=== PATIENT | female | born 1995 | race Caucasian/White ===

== ENCOUNTER 2021-11-09 01:29 | Outpatient (CLI) | payer MEDICAID, SELFPAY ==
[2021-11-09 14:58] LABS: Abs Immature Grans 0.02 10^3/uL (0.0-0.06); Absolute Basophil Count 0.06 10^3/uL (0.0-0.2); Absolute Eosinophil Count 0.13 10^3/uL (0.0-0.7); Absolute Lymphocyte Count 2.25 10^3/uL (1.2-3.4); Absolute Monocyte Count 0.79 10^3/uL (0.1-0.8); Basophils % 0.6; Eosinophils % 1.2; HCT 41.9 % (36.0-46.0); HGB 13.9 g/dL (11.2-15.7); Immature Grans % 0.2; Lymphocytes % 20.8; MCH 29.6 pg (27.0-33.0); MCHC 33.2 % (32.0-36.0); MCV 89.1 fL (80-95); MPV 10.6 fL (8.0-11.0); Monocytes % 7.3; Neutrophils % 69.9; Nucleated RBC 0 %; Platelet Count 261 10^3/uL (130-400); RDW 12.2 % (11.7-14.6); RDW-SD 40.5 fL; WBC 10.82 10^3/uL (4.4-10.8)
[2021-11-09 15:05] LABS: Absolute Neutrophil Count 7.56 10^3/uL (1.2-6.7)
[2021-11-09 15:29] LABS: *AMPHETAMINES SCREEN URINE Negative (Negative); *BARBITURATES SCREEN URINE Negative (Negative); *BENZODIAZEPINES SCREEN URINE Negative (Negative); Cannabinoids THC Positive (Negative); Cocaine Screen,Urine Negative (Negative); METHADONE URINE SCREEN Negative (Negative); OPIATES URINE SCREEN Negative (Negative); Tricyclic Antidepressants Negative (Negative)
[2021-11-12 10:08] LABS: HIV-1/2 Ag & Ab Screen Negative (Negative)
[2021-11-13 09:42] LABS: Hepatitis B Surface Ag Negative (Negative)
[2021-11-13 10:18] LABS: Hepatitis C Ab w Rflx HCV PCR Negative (Negative)
[2021-11-13 11:26] LABS: Varicella IgG Antibody Positive (See Note)
[2021-11-13 11:28] LABS: Rubella IgG Ab (UVM) Positive (See Note)
[2021-11-13 12:50] LABS: Syphilis IgG w/Reflex Nonreactive (Nonreactive)
[2021-11-15 10:45] LABS: Buprenorphine Negative ng/mL (Cutoff: 5.0); Norbuprenorphine Negative ng/mL (Cutoff: 2.5)
[2021-11-18 02:24] LABS: Result Summary NEGATIVE; Specimen WB Whole Blood
== END 2021-11-09 01:30 | disposition home or self-care (01) ==
LOC: LBO 01:30
PROVIDERS: Visit Provider Advanced Practice Midwife
DX: Z34.91 Encounter for supervision of normal pregnancy, unspecified, first trimester
CPT/HCPCS: 36415; 80307; 86787; 86803; 86850; 86900; 86901; 87340; 87389; 81220; 84443; 85025; 86762; 86780; 87086

== ENCOUNTER 2021-11-09 14:46 | Outpatient (REF) | payer MEDICAID, SELFPAY ==
--- NOTE | 2021-11-09 14:00 | PAPFT_PTH ---
PATIENT: Geovanny Hayes LOC: [facility] U#:[id number] AGE/SX: 26/F ROOM: RE11/09/[address]: Moira Mendiola CNM : 1995 BED: DIS: 11/09/2021 SPEC #: [id number] RECD: 11/09/21 18:25 STATUS: ROMMEL REQ #: [id number] SB: 11/09/21 14:[address]: Moira Mendiola DEPT: [facility] Cytology RECD BY: Darlene Castañeda ENTERED: 11/09/21 18:25 SP TYPE: PAPFT OTHR DR: Unknown,Unknown Tissues: 1 - CX/ENDOCX FOR PAP SMEARS Procedures: PAP THIN PREP/UVM Screening Comments: [id number]
[2021-11-13 15:34] LABS: Chlamydia Result Negative (Negative); GC Result Negative (Negative)
== END 2021-11-09 14:47 | disposition home or self-care (01) ==
LOC: LBN 14:46
PROVIDERS: Visit Provider Advanced Practice Midwife
DX: Z34.91 Encounter for supervision of normal pregnancy, unspecified, first trimester; Z12.4 Encounter for screening for malignant neoplasm of cervix; Z11.3 Encounter for screening for infections with a predominantly sexual mode of transmission
CPT/HCPCS: 87491; 87591; 88142

== ENCOUNTER 2021-11-24 04:14 | Outpatient (CLI) | payer MEDICAID, SELFPAY ==
[2021-11-24 09:10] LABS: Kit/Specimen SENT
== END 2021-11-24 04:15 | disposition home or self-care (01) ==
LOC: LBO 04:15
PROVIDERS: Visit Provider Advanced Practice Midwife
DX: Z34.01 Encounter for supervision of normal first pregnancy, first trimester (principal); Z36.89 Encounter for other specified antenatal screening
CPT/HCPCS: 36415

== ENCOUNTER 2021-12-08 16:29 | Emergency (ER) | payer MEDICAID, SELFPAY ==
[2021-12-08 16:31] VITALS: BP 117/69; PULSE 87; RESP 16; TEMP 37.1; O2SAT 100
--- NOTE | 2021-12-08 16:45 | DI.US_ITS ---
Exam(s) US OB 2-3 TRIMESTER EXAM: US OB 2-3 TRIMESTER CLINICAL HISTORY: LLQ abd Pain, R/O Abruptio. TECHNIQUE: Transabdominal obstetrical ultrasound performed. COMPARISON: No exams were available for comparison FINDINGS: Transabdominal obstetrical ultrasound performed. FINDINGS: Number of fetuses: One. position: Variable Placental grade: 0 Placental location: Anterior. No evidence of previa. Cervix: Unremarkable Right ovary: Not visualized. Left ovary: Unremarkable. No evidence of cyst, mass or torsion. BIOMETRIC DATA: Composite Age: 14 weeks 3 days EDC by US: 05 June 2022 Heart Rate: 171BPM No gross abnormalities. Amniotic fluid: Amount of fluid is visually within normal limits. IMPRESSION: 1. Single live intrauterine gestation 14 weeks 3 days. 2. Normal appearing left ovary. Right ovary not visualized. 3. No evidence of placental abruption or previa. DATA REPOSITORY:
--- NOTE | 2021-12-08 16:46 | ED.GENADUL_ITS ---
Discharge Plan Disposition Patient Disposition: HOME Condition: Improving Discharge Details Clinical Impression: Pain of round ligament Primary Care Provider: Aye,Local ED Provider: Gisele Jean Baptiste Home Meds and New Rx's Prescriptions: Continued Gummies 400 mcg-35 mg- 25 mg-5 mg tablet,chewable 1 tab PO DAILY 0RF aspirin 81 mg tablet,delayed release (DR/EC) 81 mg PO DAILY Qty: 60 4RF Rx Instructions: 1 tab daily, 2 tabs every other day Discharge Instructions Additional Instructions: At this time the ultrasound is within normal limits. I do suspect something called round ligament pain or a muscle strain. Your potassium was slightly low today. Please increase intake of foods high in potassium such as bananas. Continue to take your vitamins. Please follow-up with your EPIC ANESTHESIA ANALYST as previously scheduled for any concerns. Follow up with primary care provider in 3-5 days if needed . Return to ED sooner if any worsening abdominal pain, vaginal bleeding, dizziness or lightheadedness, or concerns. Increase oral fluids. Please take Tylenol or Ibuprofen with food every 4-6 hours as needed for pain and swelling. Referrals: Cherrie Palacio CNM [[facility] NURSE [employer] [employer]] - Return if symptoms worsen Discharge Data Discharge Date/Time-TO BE ENTERED AT DEPARTURE: 12/08/21 18:48 Medical Decision Making 26-year-old female presents to the ER with chief complaint of acute onset of left lower quadrant abdominal pain which occurred approximately 30 to 45 minutes prior to arrival. Patient states that she had a massage around 2 PM when she was walking out to her car and began with some left lower quadrant abdominal pain. She reports it is worse when she moves her leg or any sort of movement. She is tearful upon arrival. She did not take any medications prior to arrival. She is approximately 13 weeks prima . She denies any vaginal bleeding no nausea vomiting diarrhea no chest pain shortness of breath fever or chills. She did see her EPIC ANESTHESIA ANALYST for visit this morning. CBC, CMP, urinalysis and pelvic ultrasound ordered. Urinalysis and Tylenol ordered and 10 mg of Flexeril. Did confirm that Flexeril is a category B for . Differential diagnosis includes but not limited to muscle strain, (Round ligament strain), UTI, Kidney stone, Ovarian cyst, Gastroenteritis, threatened miscarriage, and less likely due to no c/o vaginal bleeding placenta abruptio, Ultrasound is available at this time. A second trimester ultrasound ordered. CBC shows no leukocytosis hemoglobin hematocrit within normal limits, sodium is slightly low at 134, potassium 3.3 urinalysis shows negative leukocytes no nitrites. No evidence for UTI. Verbal result from technical documentation specialist as negative. Baby's heart rate was 170s. Will await for the official result. 1753: Patient reevaluation she appears much more comfortable. She reports feeling much better after the Tylenol and Flexeril. I did discuss my suspicion for round ligament pain. And I did discuss home care. We will give a liter of normal saline and 20 mEq of potassium at this time. VRAD US: Imaging protocol: Real-time transabdominal obstetrical ultrasound of the maternal pelvis and a second or third trimester with image documentation. COMPARISON: No relevant prior studies available. FINDINGS: GESTATION: Gestation: Live intrauterine gestation. heart rate: heart rate is 171 bpm lie: Live intrauterine gestation in variable lie. Placenta: Predominantly anterior placenta. Relationship to the cervix not specifically documented Amniotic fluid: Amniotic fluid is subjectively normal BIOMETRY: Gestational age (AUA): EGA based on today's measurements is 14 weeks 3 days. Estimated due date (AUA): CAMACHO based on today's measurements is June 05, 2022. Biometry is symmetric MATERNAL: Uterus: Unremarkable. Cervix: Cervix is grossly closed on transabdominal imaging Right adnexa: The right ovary was not seen, possibly due to bowel gas. Left adnexa: Normal left ovary. IMPRESSION: 1. Live intrauterine gestation in variable lie. 2. EGA based on today's measurements is 14 weeks 3 days. 3. CAMACHO based on today's measurements is June 05, 2022. Patient discharged in hemodynamically stable condition. Patient feels much improved after medications. Discussed follow-up care and strict return instructions. This text was generated using [employer] system, please disregard any oddities of phrase or misspellings. HPI General Mode of arrival: ambulatory . Date/Time Provider Initiated Documentation: 12/08/21 16:30 . Limitations to Documentation: no limitations . Information obtained by: patient, RN notes reviewed and old records reviewed . HPI Narrative: 26-year-old female presents to the ER with chief complaint of acute onset of lef t lower quadrant abdominal pain which occurred approximately 30 to 45 minutes prior to arrival. Patient states that she had a massage around 2 PM when she was walking out to her car and began with some left lower quadrant abdominal pain. She reports it is worse when she moves her leg or any sort of movement. She is tearful upon arrival. She did not take any medications prior to arrival. She is approximately 13 weeks prima . She denies any vaginal bleeding no nausea vomiting diarrhea no chest pain shortness of breath fever or chills. She did see her EPIC ANESTHESIA ANALYST for visit this morning. Related Data Home Medications Medication Instructions Recorded Confirmed PNV 153-FA 400 mcg-om3 35 mg-dha 1 tab PO DAILY 10/20/21 12/08/21 25 mg-epa 5 mg-fish oil chew tablet ( Gummies) aspirin 81 mg tablet,delayed 81 mg PO DAILY #60 tab 11/09/21 12/08/21 release Previous Rx's Medication Instructions Recorded aspirin 81 mg tablet,delayed 81 mg PO DAILY #60 tab 11/09/21 release Allergies Allergy/AdvReac Type Severity Reaction Status Date / Time tramadol Allergy Verified 12/08/21 16:36 morphine AdvReac Itching Verified 12/08/21 16:36 General Stated Complaint: EPIC ANESTHESIA ANALYST NAI: 3 Review of Systems All systems reviewed & are unremarkable except as noted in HPI and below Constitutional Constitutional: Denies fever(s) Cardiovascular Cardiovascular: Denies chest pain and Denies dyspnea Respiratory Respiratory: Denies dyspnea Gastrointestinal Gastrointestinal: Reports abdominal pain, Denies diarrhea, Denies nausea and Denies vomiting Genitourinary Genitourinary: Reports as per HPI, Denies abnormal vaginal bleeding and Reports dysuria Musculoskeletal Musculoskeletal: Reports as per HPI and Reports abnormal gait (LLq ABD PAIN WORSE WITH WALKING AND MOVEMENT) Neurologic Neurologic: Reports abnormal gait (LLq ABD PAIN WORSE WITH WALKING AND MOVEMENT) PFSH All Active Problems (Updated 12/08/21 @ 17:58 by Gisele Jean Baptiste) Pain of round ligament (Acute) Anxiety (Chronic) Marijuana abuse (Acute) (Acute) Medical History Asthma Migraine Personal history of endometriosis Dx'ed with HSG procedure Surgical History History of mandibular surgery History of removal of ovarian cyst Family History Mother Bipolar 1 disorder, mixed, moderate Depression Breast cancer Alcohol use disorder Father Cancer lymphoma Alcohol use disorder Sister Hypertension gestational hypertension Social History Smoking/Tobacco Use Status: Never Smoking risk assessment performed?: Yes Alcohol Intake: never Drug use: Daily Substance use type: marijuana Counseling given: Yes Counseling provided: provider counseling Adopted: No Foster care: No (mostly raised by her father) Pets and animals: Yes Pets and animals: dog(s) Sexually active: Yes Do you think of yourself as: straight/heterosexual Current gender identity: female Do you feel safe at home: Yes Do you feel safe in your relationship?: Yes History History 1 Para 0 Hx # Term Pregnancies 0 Multiple births 0 Hx # Pregnancies 0 Ectopic pregnancies 0 AB induced 0 Hx Number of Living Children 0 AB spontaneous 0 Exam Narrative Exam Narrative: Constitutional: Alert and oriented x3. Appears stated age. Normal body habitus. Head: Normocephalic, no trauma. Eyes: Pupils PERRL, Red reflex noted, EOM's intact. Eyelids symmetrical without lesions, discharge, or swelling. ENT: Bilateral TM's WNL, External ear normal to inspection, no mastoid TTP, swelling, or erythema, Nasal turbinates WNL, no nasal discharge. Normal dentition, Posterior pharynx WNL, no exudate. Chest: RRR, Normal S1, S2, distal pulses intact. Resp: Lungs clear to auscultation bilaterally, no wheezes, rales, or rhonchi. Abdomen: Soft, non-distended, Normoactive bowel sounds all 4 quads. Abdomen consistent with 13-week gravidarum tenderness noted to the left lower quadrant. No masses or bulging palpated. No CVA tenderness bilaterally. Musculoskeletal: , 5/5 strength to all four extremities. Skin: No suspicious rashes or lesions. Capillary refill less than 2 sec. Neurologic: Cranial nerves II-XII intact. Alert and oriented x 3. Motor: No deficits noted. Sensory: Intact bilaterally all 4 extremities. Reflexes: DTR's intact bilaterally.. Hematologic/Lymphatic: No ecchymosis, no lymphadenopathy. Course Vital Signs Vital signs: Vital Signs Temperature 37.1 C 12/08/21 16:31 Pulse 87 12/08/21 16:31 Respiratory Rate 16 12/08/21 16:31 Blood Pressure 117/69 12/08/21 16:31 Pulse Oximetry 100 12/08/21 16:31 Temperature 37.1 C 12/08/21 16:31 Temperature Source Skin 12/08/21 16:31 Pulse 87 12/08/21 16:31 Respiratory Rate 16 12/08/21 16:31 Respiratory Effort 12/08/21 16:37 Blood Pressure 117/69 12/08/21 16:31 Blood Pressure Position Sitting 12/08/21 16:31 Pulse Oximetry 100 12/08/21 16:31 Oxygen Delivery Method Room Air 12/08/21 16:31 Oxygen Flow Rate 0 12/08/21 16:31 Pain Level 10 12/08/21 16:31
[2021-12-08] MEDS: Cyclobenzaprine 10 MG TAB PO (17:02)
[2021-12-08] MEDS: Acetaminophen 325 MG TAB 650 MG PO (17:02)
[2021-12-08 17:10] LABS: Abs Immature Grans 0.03 10^3/uL (0.0-0.06); Absolute Basophil Count 0.03 10^3/uL (0.0-0.2); Absolute Eosinophil Count 0.17 10^3/uL (0.0-0.7); Absolute Lymphocyte Count 2.06 10^3/uL (1.2-3.4); Absolute Monocyte Count 0.78 10^3/uL (0.1-0.8); Absolute Neutrophil Count 7.31 10^3/uL (1.2-6.7); Basophils % 0.3; Eosinophils % 1.6; HCT 39.4 % (36.0-46.0); HGB 13.3 g/dL (11.2-15.7); Immature Grans % 0.3; Lymphocytes % 19.8; MCH 29.2 pg (27.0-33.0); MCHC 33.8 % (32.0-36.0); MCV 86.4 fL (80-95); MPV 10.9 fL (8.0-11.0); Monocytes % 7.5; Neutrophils % 70.5; Nucleated RBC 0 %; Platelet Count 240 10^3/uL (130-400); RBC 4.56 10^6/uL (3.93-5.22); RDW 12.1 % (11.7-14.6); RDW-SD 38.5 fL; WBC 10.38 10^3/uL (4.4-10.8)
[2021-12-08 17:26] LABS: ALT 21 U/L (14-59); AST 12 U/L (15-37); Albumin 3.5 g/dL (3.4-5.0); Alkaline Phosphatase 65 U/L (46-116); Anion Gap 8.9 mmol/L (3-11); BUN 9 mg/dL (7-18); Bilirubin, Total 0.4 mg/dL (0.2-1.0); CO2 24.1 mmol/L (21.0-32.0); CREATININE 0.7 mg/dL (0.55-1.02); Calcium 8.7 mg/dL (8.5-10.1); Chloride 101 mmol/L (98-107); Glucose 91 mg/dL (74-106); Potassium 3.3 mmol/L (3.5-5.1); Sodium 134 mmol/L (136-145); Total Protein 7.2 g/dL (6.4-8.2)
[2021-12-08 17:29] LABS: Bilirubin Negative (Negative); Blood Negative (Negative); Clarity Sl Cloudy (Clear); Glucose Negative (Negative); Ketones Negative (Negative); Leukocyte Esterase Negative (Negative); Nitrite Negative (Negative); Urobilinogen 0.2 EU/dL (Up TO 0.2)
[2021-12-08] MEDS: Potassium Chloride 20 MEQ TABCR PO (17:53)
[2021-12-08] MEDS: Normal Saline 1,000 ML 1000 ML IV (17:53)
--- NOTE | 2021-12-08 18:19 | DI.VRAD_ITS ---
PROCEDURE INFORMATION: Exam: US Duplex Artery or Vein of the Abdominal and/or Reproductive Organs, Limited Exam date and time: 12/08/2021 17:21 Age: 26 years old Clinical indication: Gestational age or lmp: Edc = 06/13/2022; ; Patient HX: Llq pain starting today. No bleeding. TECHNIQUE: Imaging protocol: Real-time duplex ultrasound scan of the arterial or venous flow of the abdomen and/or reproductive organs, with color Doppler flow and spectral waveform analysis with image documentation. Exam focused on the region of clinical interest. Duplex images were received to evaluate vascular conditions. COMPARISON: No relevant prior studies available. FINDINGS: Normal arterial and venous waveforms in the left ovary. The right ovary was not seen, possibly due to bowel gas. IMPRESSION: No left ovarian torsion. PROCEDURE INFORMATION: Exam: US After First Trimester, Transabdominal Exam date and time: 12/08/2021 17:21 Age: 26 years old Clinical indication: Gestational age or lmp: Edc = 06/13/2022; ; Patient HX: Llq pain starting today. No bleeding. TECHNIQUE: Imaging protocol: Real-time transabdominal obstetrical ultrasound of the maternal pelvis and a second or third trimester with image documentation. COMPARISON: No relevant prior studies available. FINDINGS: GESTATION: Gestation: Live intrauterine gestation. heart rate: heart rate is 171 bpm lie: Live intrauterine gestation in variable lie. Placenta: Predominantly anterior placenta. Relationship to the cervix not specifically documented Amniotic fluid: Amniotic fluid is subjectively normal BIOMETRY: Gestational age (AUA): EGA based on today's measurements is 14 weeks 3 days. Estimated due date (AUA): CAMACHO based on today's measurements is June 05, 2022. Biometry is symmetric MATERNAL: Uterus: Unremarkable. Cervix: Cervix is grossly closed on transabdominal imaging Right adnexa: The right ovary was not seen, possibly due to bowel gas. Left adnexa: Normal left ovary. IMPRESSION: 1. Live intrauterine gestation in variable lie. 2. EGA based on today's measurements is 14 weeks 3 days. 3. CAMACHO based on today's measurements is June 05, 2022. Dictated and Authenticated by: Kayy Yeager MD. Ordering:JOB Jaquez MD
[2021-12-08] MEDS: Cyclobenzaprine 10 MG TAB, 3 TABS/BTL PO (18:36)
[2021-12-08 18:44] VITALS: BP 113/56; PULSE 95; RESP 17; TEMP 36.6; O2SAT 100
== END 2021-12-08 18:48 | disposition home or self-care (01) ==
LOC: ER 18:51
PROVIDERS: Emergency Provider Registered Nurse Emergency
DX: O26.891 Other specified pregnancy related conditions, first trimester (principal); Z3A.13 13 weeks gestation of pregnancy; R10.2 Pelvic and perineal pain
CPT/HCPCS: 36415; 80053; 81025; 96360; 99284; 76805; 81003; 84702; 84703; 85025

== ENCOUNTER 2021-12-22 02:30 | Outpatient (CLI) | payer MEDICAID, SELFPAY ==
[2021-12-25 20:43] LABS: Calculated age at EDD 28 years; Cigarette smoking status non-Smoker; GA used in risk estimate Scan estimate; IVF Pregnancy No; Initial or repeat testing Initial testing; Insulin dependent diabetes No; Maternal Weight 135 lbs; Number of Fetuses 1; Physician Phone Number 802-748-7300; Prev Pregnancy w/NTD No; RECOMMENDED FOLLOW UP None.; Results Summary Normal risk
== END 2021-12-22 02:31 | disposition home or self-care (01) ==
LOC: LBO 02:30
PROVIDERS: Visit Provider Advanced Practice Midwife
DX: Z34.92 Encounter for supervision of normal pregnancy, unspecified, second trimester (principal); Z36.89 Encounter for other specified antenatal screening; Z3A.15 15 weeks gestation of pregnancy
CPT/HCPCS: 36415; 82105

== ENCOUNTER 2022-01-12 00:58 | Outpatient (CLI) | payer MEDICAID, SELFPAY ==
--- NOTE | 2022-01-12 07:00 | DI.US_ITS ---
Exam(s) US OB 2-3 TRIMESTER W MOD EXAM: US OB 2-3 TRIMESTER W MOD CLINICAL HISTORY: 18 wk anatomy survey,Z34.90. TECHNIQUE: Transabdominal obstetrical ultrasound performed. COMPARISON: US US OB 2-3 TRIMESTER from 12/08/2021 FINDINGS: Transabdominal obstetrical ultrasound performed. FINDINGS: Number of fetuses: One. position: Variable Placental grade: 1 Placental location: Anterior. Cervical os lower margin of the placenta not well seen BIOMETRIC DATA: BPD: Not well seen HC: Not well seen AC: 132 millimeters, 18+ 5 weeks FL: 26 millimeters, 18+ 0 weeks Cisterna Magna: 1.6 millimeters Cerebellum: 1.7 cm EFW: Composite Age: EDC by US: 12 June 2022 Heart Rate: Present but not measured Amniotic fluid: Of fluid is visually within normal limits. ANATOMICAL SURVEY: Four-chambered heart: Unremarkable. LVOT: Unremarkable. RVOT: Unremarkable. Left-sided stomach: Unremarkable. urinary bladder: Unremarkable. Bilateral kidneys: Unremarkable. Three-vessel cord: Unremarkable. Cord insertion: Unremarkable. Umbilical artery velocity: Unremarkable. Posterior fossa:Not well seen ventricles: Not well seen. nose: Unremarkable. lips: Unremarkable. palate: Unremarkable. spine: Unremarkable. Two arms and two legs: Unremarkable. IMPRESSION: 1. head, cervix and lower margin of the percent or not well seen on today's exam. Patient is s cheduled to return 19 Jan 2022 for additional imaging. DATA REPOSITORY:
== END 2022-01-12 01:18 ==
PROVIDERS: Visit Provider Advanced Practice Midwife
DX: Z34.92 Encounter for supervision of normal pregnancy, unspecified, second trimester (principal); Z3A.18 18 weeks gestation of pregnancy
CPT/HCPCS: 76805

== ENCOUNTER → 2022-01-22 00:33 | Outpatient (CLI) | payer MEDICAID, SELFPAY ==
--- NOTE | 2022-01-22 | DI.US_ITS ---
Exam(s) US OB F/U FACIAL/LVOT/RVOT EXAM: US OB F/U FACIAL/LVOT/RVOT CLINICAL HISTORY: F/U SURVEY, HEAD/CERVIX/LOWER MARGIN PLACENTA. TECHNIQUE: Transabdominal obstetrical ultrasound performed. COMPARISON: US US OB 2-3 TRIMESTER W MOD from 01/12/2022 FINDINGS: Transabdominal obstetrical ultrasound performed. FINDINGS: Number of fetuses: One. position: Vertex. heart rate: 157 bpm. Placental location: Anterior. No evidence of previa. Placental margin 3.3 cm from os. BIOMETRIC DATA: Composite Age: 20+ 4 weeks EDC: 07 June 2022 Amniotic fluid: Amount of fluid is within normal limits. ANATOMICAL SURVEY: heart, stomach, bladder, kidneys, face and spine were evaluated on today's exam. There is mild pelviectasis bilaterally of 4 millimeters. BPD and HC measurements w ere obtained. IMPRESSION: 1. Single live intrauterine gestation as above. 2. Mild bilateral symmetric renal pelviectasis, otherwise normal anatomic survey. DATA REPOSITORY:
== END ==
PROVIDERS: Visit Provider Advanced Practice Midwife
DX: Z34.92 Encounter for supervision of normal pregnancy, unspecified, second trimester (principal); Z3A.20 20 weeks gestation of pregnancy
CPT/HCPCS: 76815

== ENCOUNTER 2022-03-23 02:05 | Outpatient (CLI) | payer MEDICAID, SELFPAY ==
[2022-03-23 11:50] LABS: HCT 32.6 % (36.0-46.0); HGB 10.5 g/dL (11.2-15.7); MCH 27.9 pg (27.0-33.0); MCHC 32.2 % (32.0-36.0); MCV 87 fL (80-95); MPV 10.6 fL (8.0-11.0); Platelet Count 254 10^3/uL (130-400); RBC 3.76 10^6/uL (3.93-5.22); RDW-SD 38.1 fL; WBC 8.38 10^3/uL (4.4-10.8)
[2022-03-23 12:05] LABS: Glucose,1 Hr (Glucola) 92 mg/dL (80-140)
== END 2022-03-23 02:06 | disposition home or self-care (01) ==
LOC: LBO 02:05
PROVIDERS: Visit Provider Advanced Practice Midwife
DX: O36.0130 Maternal care for anti-D [Rh] antibodies, third trimester, not applicable or unspecified (principal); O26.893 Other specified pregnancy related conditions, third trimester; Z3A.28 28 weeks gestation of pregnancy
CPT/HCPCS: 36415; 82950; 85027; 86850; 90384

== ENCOUNTER 2022-03-23 15:35 | Outpatient (REF) | payer MEDICAID, SELFPAY ==
[2022-03-23 14:46] LABS: *AMPHETAMINES SCREEN URINE Negative (Negative); *BARBITURATES SCREEN URINE Negative (Negative); *BENZODIAZEPINES SCREEN URINE Negative (Negative); Cannabinoids THC Positive (Negative); Cocaine Screen,Urine Negative (Negative); METHADONE URINE SCREEN Negative (Negative); OPIATES URINE SCREEN Negative (Negative); Tricyclic Antidepressants Negative (Negative)
[2022-03-29 11:07] LABS: Buprenorphine Negative ng/mL (Cutoff: 5.0); Norbuprenorphine Negative ng/mL (Cutoff: 2.5)
== END 2022-03-23 15:36 | disposition home or self-care (01) ==
LOC: LBN 15:35
PROVIDERS: Visit Provider Advanced Practice Midwife
DX: Z34.93 Encounter for supervision of normal pregnancy, unspecified, third trimester (principal); Z3A.28 28 weeks gestation of pregnancy
CPT/HCPCS: 80307

== ENCOUNTER → 2022-05-09 01:51 | Outpatient (CLI) | payer MEDICAID, SELFPAY ==
--- NOTE | 2022-05-09 07:30 | DI.US_ITS ---
Exam(s) US OB F/U FACIAL/LVOT/RVOT EXAM: US OB F/U FACIAL/LVOT/RVOT CLINICAL HISTORY: kidney pyelectasis,o35.8xx0. TECHNIQUE: Transabdominal obstetrical ultrasound was performed. COMPARISON: US US OB F/U FACIAL/LVOT/RVOT from 01/22/2022 FINDINGS: There is a single viable intrauterine gestation with cardiac activity identified-138 bpm The fetus is presently in cephalic position . Three-vessel umbilical cord identified. Amniotic fluid: Not evaluated. Placental location: The placenta is anterior grade 3, This study was apparently follow-up of the renal kidneys. The SPECT of the kidneys, the PD/KD ratio is less than 50 percent bilaterally. There is no sathya e caliectasis. IMPRESSION:: As above. To be prudent I recommend ultrasound scanning of the kid neys. This should not be performed in the 1st 48 hours following . The reason for this is that dehydration may occur during delivery and result in false negative results. DATA REPOSITORY:
== END ==
PROVIDERS: Visit Provider Advanced Practice Midwife
DX: O35.8XX0 Maternal care for other (suspected) fetal abnormality and damage, not applicable or unspecified (principal)
CPT/HCPCS: 76815

== ENCOUNTER 2022-05-18 15:33 | Outpatient (REF) | payer MEDICAID, SELFPAY ==
[2022-05-18 18:05] LABS: *AMPHETAMINES SCREEN URINE Negative (Negative); *BARBITURATES SCREEN URINE Negative (Negative); *BENZODIAZEPINES SCREEN URINE Negative (Negative); Cannabinoids THC Positive (Negative); Cocaine Screen,Urine Negative (Negative); METHADONE URINE SCREEN Negative (Negative); OPIATES URINE SCREEN Negative (Negative)
[2022-05-18 18:11] LABS: Tricyclic Antidepressants Negative (Negative)
[2022-05-25 12:26] LABS: Buprenorphine Negative ng/mL (Cutoff: 5.0); Norbuprenorphine Negative ng/mL (Cutoff: 2.5)
== END 2022-05-18 15:34 | disposition home or self-care (01) ==
LOC: LBN 15:33
PROVIDERS: Visit Provider Advanced Practice Midwife
DX: Z34.93 Encounter for supervision of normal pregnancy, unspecified, third trimester (principal)
CPT/HCPCS: 80307; 87081

== ENCOUNTER 2022-06-07 01:36 | Inpatient (IN) | payer MEDICAID, SELFPAY ==
[2022-06-07] VITALS (47 sets, daily range): BP systolic 99–144; BP diastolic 51–93; PULSE 55–101; RESP 16–20; TEMP 36.6–37; O2SAT 92–100; BMI 28.7
--- NOTE | 2022-06-07 01:59 | W.PM.OBHPL1 ---
Date of service: 06/07/22 Time of Service: 01:59 Assessment and Plan Assessment and plan (1) Group B Streptococcus carrier, +RV culture, currently : Status: Acute Assessment and plan: start penicillin per protocol for antibiotic prophylaxis (2) Spontaneous onset of labor: Status: Acute Assessment and plan: Admit to Center. Comfort measures. Covid- 19 test. Anticipate . OB-HPI Labor/Delivery History of Present Illness Reason for Visit: NST Chief Complaint: Uterine Contractions. CAMACHO Calculator Estimated Delivery Date Method Current WG Current Estimate 06/13/22 Ultrasound #1 39w 1d Other Estimates 05/10/22 LMP (Certain) 44w 0d Comments: Geovanny presents with strong uterine contractions. GBS positive status History of Present Expected Delivery Route/Plan - CNM FOB/agueda Mckeon Tim Cruz (has 4 yo daughter) BG-Lorena May GBS positive-intrapartum antibiotics Krishan is primary support person for labor Specific Issues/Plan 1. Pt & FOB are not COVID vaccinated (pt had mild COVID Jul 2021), no desire to be vaccinated 2. Daily MJ use to manage anxiety, advised to decrease/stop, offered Rx for anxiety, pt declines, will look into herbal remedies 2a. plan 28 wk UDS, POSC with [facility] if THC+ ___, scheduled 06/04. 3. Low dose ASA for nulliparity and fam hx (sister), start at 12 wks 4. Desires CF and cfDNA testing. CF neg; Panorama low prob x5, female fetus, AFP nml risk for NTD 5. Rh neg, RhoGam at 28 wks, done 03/23/22 6. Anatomy US incomplete, bilat. mild renal pelviectasis noted. Follow up US: and no Calciectasis is noted, radiology recommends doing renal US for baby > 48 hr after . message sent to Peds 05/10 and [place] sheet on chart at 7. Anxiety- no meds currently 8. Mild anemia @ 28 wks, start iron supplement 9. change in mole on right lower abdomen, referral to [facility] derm done 04/06 PFS All Active Problems (Updated 06/07/22 @ 02:03 by Cherrie Palacio CNM) Spontaneous onset of labor (Acute) Group B Streptococcus carrier, +RV culture, currently (Acute) Encounter for ultrasound recheck of pyelectasis, antepartum (Acute) Change in skin mole (Acute) Rh negative state in antepartum period (Acute) Anxiety (Chronic) no medications. Marijuana abuse (Acute) (Acute) Medical History Asthma Migraine Personal history of endometriosis Dx'ed with HSG procedure Surgical History History of mandibular surgery History of removal of ovarian cyst Family History Mother Bipolar 1 disorder, mixed, moderate Depression Breast cancer Alcohol use disorder Father Cancer lymphoma Alcohol use disorder Sister Hypertension gestational hypertension Social History Smoking/Tobacco Use Status: Never Smoking risk assessment performed?: Yes Alcohol Intake: never Drug use: Daily Substance use type: marijuana Counseling given: Yes Counseling provided: provider counseling Adopted: No Foster care: No (mostly raised by her father) Pets and animals: Yes Pets and animals: dog(s) Sexually active: Yes Do you think of yourself as: straight/heterosexual Current gender identity: female Do you feel safe at home: Yes Do you feel safe in your relationship?: Yes History History 1 Para 0 Hx # Term Pregnancies 0 Multiple births 0 Hx # Pregnancies 0 Ectopic pregnancies 0 AB induced 0 Hx Number of Living Children 0 AB spontaneous 0 Meds Allergies and Home Medications Allergies Allergy/AdvReac Type Severity Reaction Status Date / Time tramadol Allergy Verified 05/25/22 14:52 morphine AdvReac Itching Verified 05/25/22 14:52 Home Medications Medication Instructions Recorded Confirmed Type PNV 153-FA 400 mcg-om3 35 mg-dha 1 tab PO DAILY 10/20/21 05/18/22 History 25 mg-epa 5 mg-fish oil chew tablet ( Gummies) aspirin 81 mg tablet,delayed 81 mg PO DAILY #60 tabs 11/09/21 05/18/22 Rx release ferrous sulfate 325 mg (65 mg 325 mg PO DAILY #60 tabs 03/23/22 05/18/22 Rx iron) tablet pantoprazole 20 mg tablet,delayed 20 mg PO DAILY #30 tabs 04/20/22 05/18/22 Rx release (Protonix) Exam Detailed Labor and Delivery Exam Dilation: 3 Effacement (%): 80 station: -1 Cervix position: mid Consistency: soft Jeffery Score: Cervical Points Exam 0 1 2 3 Dilation Closed 1-2cm 3-4 cm 5-6cm Effacement 0-30% 40-50% 60-70% 80% Consistency Firm Medium Soft Station -3 -2 -1,0 +1,+2 Position Posterior Mid Anterior Amniotic Membrane Status: Intact Monitor Mode: External Contraction Frequency(min): every 3-4 Contraction Duration(sec): 50 Contraction Intensity: Moderate/Strong Fetus A Heart Rate Baseline: 140 Monitor Accelerations: 15 X 15 Monitor Decelerations: None Variability: Moderate (6-25 BPM) Presentation: Vertex Categories: Category I Respiratory Exam Respiratory Exam: Normal Cardiovascular Exam Cardiovascular Exam: Normal Abdominal Exam Abdominal Exam: Normal Rectal Exam Rectal Exam: Normal Exam Exam: Normal Extremities Exam Extremities Exam: Normal Skin Exam Skin Exam: Normal Psychiatric Exam Psychiatric Exam: Normal Risk Assessment Risk for Shoulder Dystocia Delivery Plan @ 36wks: NVD. SPEAR Risk for Pre-Eclampsia Date Initiated/Initials: advised to begin low dose ASA at 12 wks. JK Yes, if one or more: NEGATIVE FOR: Hx Pre-E/Gest HTN, Chronic HTN, Multiple Gestation, Pre-gestational DM, Renal Disease, Systemic Lupus or APA Syndrome Yes, if 2 or more: POSITIVE FOR: Nulliparity and Mother/Sister w/ Pre-E; NEGATIVE FOR: Age>= 35 yrs, >10yr btwn pregnancies, BMI>30, ethinicty or Previous IUGR Risk for Post- Hemorrhage Initial: NEGATIVE FOR: Multiple Gestation, Previous PPH, Known Clotting Deficiency, Grand Multiparity or Anticoagulation At Risk?: No Risks Reviewed Risks Reviewed Upon Admission: Yes
[2022-06-07 02:02] LABS: HCT 34.5 % (36.0-46.0); MCH 24.4 pg (27.0-33.0); MCHC 31.9 % (32.0-36.0); MCV 77 fL (80-95); MPV 11.3 fL (8.0-11.0); Platelet Count 325 10^3/uL (130-400); RDW 13.4 % (11.7-14.6); RDW-SD 37.3 fL; WBC 13.42 10^3/uL (4.4-10.8)
[2022-06-07] MEDS: Penicillin G POT. 5,000,000 UNITS in Normal Saline 100 ML 200 UNITS IVPB (02:51)
[2022-06-07] MEDS: Nalbuphine 10 MG/ML AMP SC (03:54)
[2022-06-07 04:15] LABS: Source Nasal/Nares
[2022-06-07 04:46] LABS: COVID-19 PCR Negative (Negative)
[2022-06-07] MEDS: Penicillin G POT. 3,000,000 UNITS in Normal Saline 50 ML 100 UNITS IVPB ×2 (05:57→11:05)
--- NOTE | 2022-06-07 06:57 | W.ANESPRE ---
General Info Date of Service Date Performed: 06/07/22 Height: 5 ft 6 in Weight: 80.739 kg Body Mass Index (BMI): 28.7 Meds Allergies and Home Medications Allergies Allergy/AdvReac Type Severity Reaction Status Date / Time tramadol Allergy Verified 05/25/22 14:52 morphine AdvReac Itching Verified 05/25/22 14:52 Home Medication Medication Instructions Recorded PNV 153-FA 400 mcg-om3 35 mg-dha 1 tab PO DAILY 10/20/21 25 mg-epa 5 mg-fish oil chew tablet ( Gummies) aspirin 81 mg tablet,delayed 81 mg PO DAILY #60 tabs 11/09/21 release ferrous sulfate 325 mg (65 mg 325 mg PO DAILY #60 tabs 03/23/22 iron) tablet pantoprazole 20 mg tablet,delayed 20 mg PO DAILY #30 tabs 04/20/22 release (Protonix) Current Visit Medications: Current Medications Generic Name Dose Route Start Last Admin Trade Name Freq PRN Reason Stop Dose Admin Penicillin G Potassium 3,000, 50 mls @ 100 mls/hr 06/07/22 06:00 06/07/22 05:57 000 units/ Sodium Chloride IVPB 100 mls/hr Q4H GIOVANNI Administration Sodium Chloride 500 mls @ 0 mls/hr 06/07/22 02:14 Saline 500ml Bag IV PRN PRN As Directed IV Miscellaneous Supplies 1 each 06/07/22 02:15 Iv Access IV DIRECTED GIOVANNI Sodium Chloride 0 ml 06/07/22 02:14 Normal Saline Flush 10 Ml Syr IVP PRN PRN PFSH Active Problems Active Problems: Problem Status Onset Code Spontaneous onset of labor Group B Streptococcus carrier, +RV culture, currently O99.820 Encounter for ultrasound recheck of pyelectasis, antepartum O35.8XX0 Change in skin mole D22.9 Rh negative state in antepartum period O26.899, Z67.91 Anxiety F41.9 Marijuana abuse F12.10 Z34.90 Medical History Medical History Asthma Migraine Personal history of endometriosis Dx'ed with HSG procedure Surgical History Surgical History History of mandibular surgery History of removal of ovarian cyst Tobacco Smoking/Tobacco Use Status: Never Alcohol Alcohol Intake: never Substance Use Substance use: Daily Substance use type: marijuana Counseling provided: provider counseling Prental History History 1 Para 0 Hx # Term Pregnancies 0 Multiple births 0 Hx # Pregnancies 0 Ectopic pregnancies 0 AB induced 0 Hx Number of Living Children 0 AB spontaneous 0 Vital Signs and Lab Results Vital Signs Most Recent Vital Signs in EMR: Most Recent Vital Signs Temp Pulse Resp BP 36.7 C 80 20 130/75 06/07/22 02:04 06/07/22 03:45 06/07/22 03:45 06/07/22 02:04 Lab Results Result Diagrams: 06/07/22 00:55 Blood Type / Crossmatch: Patient ABO/Rh O Negative 06/07/22 Antibody Screen POSITIVE 06/07/22 Complete Blood Count: White Blood Count 13.42 10^3/uL (4.4-10.8) H 06/07/22 00:55 Red Blood Count 4.50 10^6/uL (3.93-5.22) 06/07/22 00:55 Hemoglobin 11.0 g/dL (11.2-15.7) L 06/07/22 00:55 Hematocrit 34.5 % (36.0-46.0) L 06/07/22 00:55 Platelet Count 325 10^3/uL (130-400) 06/07/22 00:55 Complete Metabolic Panel: No Data to Display Liver Function Panel: No Data to Display Coagulation Panel: No Data to Display Cardiac Panel: No Data to Display Arterial Blood Gas: No Data to Display Venous Blood Gas: No Data to Display Pancreas Panel: No Data to Display Thyroid Panel: No Data to Display Infectious Disease: Coronavirus (COVID-19)(PCR) Negative (Negative) 06/07/22 03:30 Coronavirus 2019 Source Nasal/Nares 06/07/22 03:30 Blood Cultures: No Data to Display Toxicology Panel: Urine Amphetamines Screen Negative (Negative) 05/18/22 17:20 Urine Benzodiazepines Screen Negative (Negative) 05/18/22 17:20 Urine Barbiturates Screen Negative (Negative) 05/18/22 17:20 Urine Cocaine Screen Negative (Negative) 05/18/22 17:20 Urine Methadone Screen Negative (Negative) 05/18/22 17:20 Urine Opiates Screen Negative (Negative) 05/18/22 17:20 Ur Tricyclic Antidepressants Screen Negative (Negative) 05/18/22 17:20 Ur Tetrahydrocannabinol (THC) Scrn Positive (Negative) A 05/18/22 17:20 Panel: No Data to Display Anesthesia Assessment and Plan Anesthesia History Personal History: No History of Anesthesia Complications Family History: No Family History of Anesthesia Complications Exercise Tolerance Exercise Tolerance: Metabolic Equivalents>4 Pertinent Negatives Pertinent Negatives: No Major Cardiovascular Symptoms or Complaints and No Major Pulmonary Symptoms or Complaints Cardiac & Pulmonary Exam Cardiac Exam: Normal S1/S2 Heart Sounds Pulmonary Exam: Clear Bilateral Breath Sounds Implantable Cardiac Device Does patient have a Pacemaker or an ICD?: No Airway Exam Known Difficult Airway: No Mallampati Class: 2 Mouth Opening: Normal (> 3cm) Thyromental Distance: Greater than 3 cm Neck Range of Motion: Full ROM Neck Circumference: Normal Teeth Condition: Normal Dentition and Other (Small bottom plate after mandibular surgery) ASA Classification ASA Score: ASA 2 Emergency Case?: No NPO Status NPO Status: NPO Clears >2 hours, Solids >8 hours Status Status: Confirmed Anesthesia Plan Resuscitation Status: Full Code Anesthesia Technique: Epidural Anesthesia Airway Planned: Natural Airway Monitors Used: Standard Monitors
[2022-06-07] MEDS: Lactated Ringers 1,000 ML 999 ML IV (07:05)
[2022-06-07] MEDS: FentaNYL/ROPIvacaine 2 mcg/ml and 0.1% 200 ML CADD Cassette EP (07:47)
--- NOTE | 2022-06-07 07:58 | W.ANESNEU ---
Epidural/Spinal Catheter Date Performed: 06/07/22 Procedure Start: 07:26 Procedure Stop: 07:53 Requesting Provider: Cherrie Palacio Procedure Location: Obstetrics Reason Performed: Labor Epidural Standard Monitors Applied: Blood Pressure, SpO2 and See EMR for corresponding vital signs Patient Position: Sitting Sedation Given (Indicate Dose Given): No Sedation given Patient Mental Status: Awake Sterility: Hand Hygiene, Surgical Cap, Surgical Mask, Sterile Gloves, Sterile Drape/Sheet, Eye Protection and Chlorhexidine Procedure Location: L2-L3 Interspace Epidural Needle: Tuohy 18 Gauge Needle Length: 3.5 Inch Needle Approach: Midline Epidural Procedure: Skin Prepped, Sterile Drape Placed, 1% Lidocaine to skin and subcutaneous tissue with 25G needle, Tuohy Needle placed, JEN to Saline Used, Epidural Catheter Placed, Negative Heme, Negative CSF Flow and Tuohy Needle Removed Catheter Placed?: Catheter Placed Test Dose (Indicate Dose Given): 3ml 1.5% Lidocaine with 1:200K Epinephrine Given Loss of Resistance Depth (cm): 7 Catheter depth at skin (cm): 15 Dressing: Tegaderm Applied, Mastisol Used and Dressing reinforced with Tape Epidural Provider Bolus (Indicate Dose Given): Total bolus dose given in 3-5 ml divided doses and Total Ropivacaine 0.1% with Fentanyl 2mcg/ml Given from pump. (ml) Dose:: 10mL in 2 divided doses: 5/5 Additives (Indicate Dose Given ): None Infusion Medication: Medication Infusion Began Medication Infusion: Ropivacaine 0.1% with Fentanyl 2mcg/ml Maintenance Infusion Rate (ml/hour): 10 PCEA Bolus Dose (ml): 5 Block Level: N/A Paresthesia: None Ultrasound: Not Used Number of Attempts (See previous attempts in note section): 2 Procedure Tolerated: No Complications Procedure Outcome: Successful Performed By: Demetra Gong
--- NOTE | 2022-06-07 08:47 | W.PM.OBNL1 ---
Date of service: 06/07/22 Time of Service: 08:00 Pelvic Exam Dilation: 4 Effacement (%): 100 station: 0 Cervix Position: posterior Consistency: soft Contractions Monitor Mode: External Contraction Frequency(min): every 3 minutes Contraction Duration(sec): 60 Intensity: Moderate/Strong Fetus A Monitor: External (US) Heart Rate Baseline: 130 Presentation: Vertex Variability: Moderate (6-25 BPM) Categories: Category I FHR Rhythm: Regular Accelerations: 15 X 15 Decelerations: None Amniotic Membrane Status: Intact Assessment and Plan Assessment and plan (1) Spontaneous onset of labor: Status: Acute Assessment and plan: anticipate . Repeat SVE after 2 hours. Objective Abnormal lab results 06/07/22 Range/Units 00:55 WBC 13.42 H (4.4-10.8) 10^3/uL Hgb 11.0 L (11.2-15.7) g/dL Hct 34.5 L (36.0-46.0) % MCV 77 L (80-95) fL MCH 24.4 L (27.0-33.0) pg MCHC 31.9 L (32.0-36.0) % MPV 11.3 H (8.0-11.0) fL Temp Pulse Resp BP 98.1 F 80 20 130/75 06/07/22 02:04 06/07/22 03:45 06/07/22 03:45 06/07/22 02:04 Laboratory Results WBC 13.42 10^3/uL (4.4-10.8) H 06/07/22 00:55 RBC 4.50 10^6/uL (3.93-5.22) 06/07/22 00:55 Hgb 11.0 g/dL (11.2-15.7) L 06/07/22 00:55 Hct 34.5 % (36.0-46.0) L 06/07/22 00:55 MCV 77 fL (80-95) L 06/07/22 00:55 MCH 24.4 pg (27.0-33.0) L 06/07/22 00:55 MCHC 31.9 % (32.0-36.0) L 06/07/22 00:55 RDW 13.4 % (11.7-14.6) 06/07/22 00:55 Plt Count 325 10^3/uL (130-400) 06/07/22 00:55 MPV 11.3 fL (8.0-11.0) H 06/07/22 00:55 COVID-19 Source Nasal/Nares 06/07/22 03:30 SARS-CoV-2 (PCR) Negative (Negative) 06/07/22 03:30 Patient ABO/Rh O Negative 06/07/22 00:55 Antibody Screen POSITIVE 06/07/22 00:55 Antibody Identification Anti-D 09 00:55 Subjective Interval history since last seen: Geovanny received an epidural with good effect. She is resting comfortably. Results Hemoglobin/Hematocrit: Hgb 11.0 g/dL (11.2-15.7) L 06/07/22 00:55 Hct 34.5 % (36.0-46.0) L 06/07/22 00:55 Abnormal Lab Findings: Abnormal Labs 06/07/22 00:55 WBC 13.42 H Hgb 11.0 L Hct 34.5 L MCV 77 L MCH 24.4 L MCHC 31.9 L MPV 11.3 H
[2022-06-07] MEDS: fentaNYL 100 MCG/2 ML VIAL ×2 (09:40→10:20)
[2022-06-07] MEDS: Bupivacaine 0.25% Pres-Free 10 ML VIAL ×2 (09:41→10:15)
--- NOTE | 2022-06-07 10:34 | W.ANESNEU ---
Epidural/Spinal Catheter Date Performed: 06/07/22 Procedure Start: 10:01 Procedure Stop: 10:20 Requesting Provider: Cherrie Palacio Procedure Location: Obstetrics Reason Performed: Labor Epidural Standard Monitors Applied: Blood Pressure, SpO2 and See EMR for corresponding vital signs Patient Position: Sitting Sedation Given (Indicate Dose Given): No Sedation given Patient Mental Status: Awake Sterility: Hand Hygiene, Surgical Cap, Surgical Mask, Sterile Gloves and Chlorhexidine Procedure Location: L3-L4 Interspace Epidural Needle: Tuohy 18 Gauge Needle Length: 3.5 Inch Needle Approach: Midline Epidural Procedure: Skin Prepped, Sterile Drape Placed, 1% Lidocaine to skin and subcutaneous tissue with 25G needle, Tuohy Needle placed, JEN to Saline Used, Epidural Catheter Placed, Negative Heme, Negative CSF Flow and Tuohy Needle Removed Catheter Placed?: Catheter Placed Test Dose (Indicate Dose Given): 3ml 1.5% Lidocaine with 1:200K Epinephrine Given Loss of Resistance Depth (cm): 7 Catheter depth at skin (cm): 15 Dressing: Tegaderm Applied, Mastisol Used and Dressing reinforced with Tape Epidural Provider Bolus (Indicate Dose Given): Total bolus dose given in 3-5 ml divided doses, Total Ropivacaine 0.1% with Fentanyl 2mcg/ml Given from pump. (ml) Dose:: 5mL and Total Bupivacaine 0.25% Given (ml) Dose:: 5mL Additives (Indicate Dose Given ): Fentanyl PF Dose:: 50 mcg Infusion Medication: Medication Infusion Began Medication Infusion: Ropivacaine 0.1% with Fentanyl 2mcg/ml Maintenance Infusion Rate (ml/hour): 10 PCEA Bolus Dose (ml): 5 Block Level: N/A Paresthesia: None Ultrasound: Not Used Number of Attempts (See previous attempts in note section): 1 Procedure Tolerated: No Complications Procedure Outcome: Unsuccessful (Patient continues to reports, despite re-do of epidural and bolus doses, significant pain on the right lower portion of her abdomen. Logan Palacio CNM at bedside with RN. Patient provided verbal education about epidurals and how at times they fail to cover both aspects of the abdomen evenly. ) Performed By: Demetra Gong
--- NOTE | 2022-06-07 10:39 | PDOC.ANES ---
Date of service: 06/07/22 Time of Service: 09:25 Anesthesia Note Report Anesthesia Note: Called to patient bedside to assess epidural, as patient reports continued discomfort from labor. An alcohol prep pad was used to assess dermatone coverage. T10 on left side and minimal on right. Patient was encouraged to lay on right side and 5mL 0.25% Bupivacaine administered with 50mcg Fentanyl after a negative aspiration. Prior to bolus administration, catheter was pulled back 2cm from 15 to 13cm. Despite intervention efforts, patient still reported significant pain and wished to have the epidural catheter removed and the procedure repeated. Catheter removed with tip intact at 0941. See epidural placement note for second catheter placement.
[2022-06-07] MEDS: Dibucaine 1% 28 GM TUBE (18:21)
[2022-06-07] MEDS: Hamamelis Leaf/Glycerin 100 EACH BOX (18:22)
[2022-06-07] MEDS: Acetaminophen 325 MG TAB 650 MG PO (19:33)
[2022-06-07] MEDS: Ibuprofen 600 MG TAB PO (19:33)
[2022-06-08 04:01] VITALS: BP 127/81; PULSE 70; RESP 18; TEMP 36.3; O2SAT 99
[2022-06-08 09:00] VITALS: BP 119/83; PULSE 85; RESP 20; TEMP 36.6
--- NOTE | 2022-06-08 11:18 | OBVDS_ITS ---
Date of service: 06/07/22 Time of Service: 16:00 OB Labor/ Delivery Information Baby A Delivery Delivery Method: Spontaneaous Presentation: Vertex Amniotic Fluid: Clear Estimated Blood Loss: 300 Delivery Outcome: Liveborn Complications: none Transferred: Remains with Mother Note: Geovanny rested well after second epidural in place. She was examined and found to be fully dilated and +1 station. FHTs 130s during first stage of labor. FHTs 130s in second stage. Geovanny began pushing well. Second stage huddle was done. Spontaneous delivery of female named Lorena delivered in EFRAIN position. Baby was placed on mother's abdomen and dried and stimulated. Spontaneous cry. Cord was clamped and cut by the baby's father. The placenta delivered spontaneously and appears to by intact with a three vessel cord. Pitocin 30 units IV was administered prior to delivery of the placenta. The perineum was inspected and a first degree laceration was repaired and a small left periurethral laceration. The baby did breastfeed. After delivery, Mother and baby and father of the baby were stable and bonding well in the delivery room and there were no complications. Providers Nurse Production Repairer: Cherrie Palacio Electric Blanket Packer: Demetra Gong Nurse: Mahogany Rae Nurse: Yovani Villarreal Labor/Delivery Information Number of Babies in Womb: 1 Reason Steroids Not Administered: N/A Group Beta Strep: Positive Antibiotics Administered: Yes Number of Doses of Antibiotics: 2 Rubella Status: Immune Blood Type: O- Varicella Immunity: Immune Shoulder Dystocia: Yes Stages of Labor Onset of Labor Date: 06/06/22 Onset of Labor Time: 17:00 Complete Dilatation Date: 06/07/22 Complete Dilatation Time: 14:29 Labor - Stage 1 Duration: 24 hours and 0 minutes ROM Baby A: 06/07/22 ROM Baby A: 09:52 ROM Total Time- Baby A: [id number] Delivery Date-Baby A: 06/07/22 Delivery Time-Baby A: 15:36 Labor Stage 2 Duration: 1 hours and 7 minutes Placenta Delivery Date-Baby A: 06/07/22 Placenta Delivery Time-Baby A: 15:41 Labor-Stage 3 Duration: 5 minutes Total Length of Labor-Baby A: 22 hours and 36 minutes Placenta Cultured: No Placenta Status: Delivered Baby A Infant Gender: Female Gestational Status: Term (39-41.6 wks) Gestational Age in Weeks/Days: 39 Weeks and 1 Days weight: 6 lb 12.115 oz Length-Baby A: 19.5 in Head Circumference-Baby A: 13 in Score-1 Minute Interval(Baby A) Heart Rate-1 minute: 100 BPM or Greater Respiratory Effort- 1 minute: Spontaneous/Strong Cry Muscle Tone-1 minute: Active Movement Reflex Response-1 minute: Prompt Response Color-1 minute: Bluish Hands or Feet Total Score-1 minute: 9 Score-5 Minute Interval(Baby A) Heart Rate- 5 minute: 100 BPM or Greater Respiratory Effort-5 minute: Spontaneous/Strong Cry Muscle Tone-5 minute: Active Movement Reflex Response-5 minute: Prompt Response Color-5 minute: Bluish Hands or Feet Total Score- 5 minute: 9
--- NOTE | 2022-06-08 12:23 | W.PM.OBPNV1 ---
Date of service: 06/08/22 Time of Service: 12:23 Assessment and Plan Assessment and plan (1) Term of female : Status: Acute Assessment and plan: Routine post car. Plan discharge tomorrow. Subjective Subjective Interval history: Geovanny feels well. Mild discomfort Patient comments: No complaints Patient's Mood: good baby status: Doing well and Bottle feeding well feeding status: Exclusively breast feeding Exam Physical Exam Vital signs: Temp Pulse Resp BP Pulse Ox 97.9 F 85 20 119/83 99 06/08/22 09:00 06/08/22 09:00 06/08/22 09:00 06/08/22 09:00 06/08/22 04:01 Respiratory Exam Respiratory Exam: Normal Cardiovascular Exam Cardiovascular Exam: Normal Fundal Exam Fundus: Below Umbilicus Rectal Exam Rectal Exam: Normal Extremities Exam Extremity Exam: Normal Skin Exam Skin Exam: Normal Psychiatric Exam Psychiatric Exam: Normal Results Hemoglobin/Hematocrit: Hgb 11.0 g/dL (11.2-15.7) L 06/07/22 00:55 Hct 34.5 % (36.0-46.0) L 06/07/22 00:55 Abnormal Lab Findings: Abnormal Labs 06/07/22 00:55 WBC 13.42 H Hgb 11.0 L Hct 34.5 L MCV 77 L MCH 24.4 L MCHC 31.9 L MPV 11.3 H
--- NOTE | 2022-06-09 10:46 | DSE_ITS ---
Date of service: 06/09/22 Time of Service: 10:47 DS: Diagnosis Discharge Diagnosis (1) Term of female : Status: Acute Asessment and Plan: Caring for baby independently. Pain is managed well with oral analgesics. Voiding without difficulty. well. Geovanny was discharged last night. A - stable mother and baby , Post day 1 P - Discharge to home last night. Routine post instructions. [facility] Discharge Plan Disposition Patient Disposition: HOME Condition: Good Discharge Details Reason For Visit: Labor Admit Date/Time: 06/07/22 01:36 Admit Provider: Ibis Delgado Attending Provider: Ibis Delgado Primary Care Provider: Aye,[facility] [place] Meds and New Rx's Prescriptions: No Action Gummies 400 mcg-35 mg- 25 mg-5 mg tablet,chewable 1 tab PO DAILY aspirin 81 mg tablet,delayed release (DR/EC) 81 mg PO DAILY Qty: 60 4RF Rx Instructions: 1 tab daily, 2 tabs every other day pantoprazole [Protonix] 20 mg tablet,delayed release (DR/EC) 20 mg PO DAILY Qty: 30 3RF ferrous sulfate 325 mg (65 mg iron) tablet 325 mg PO DAILY Qty: 60 3RF Discharge Instructions Instructions: Depression (DC) Stand Alone Forms: BC Post Vaginal Deliver Activity:: Activity as Tolerated Equipment/Supplies:: No Equipment Needed Diet:: As Tolerated Discharge Orders Discharge Orders: Discharge Order (Routine); Ordered 06/09/22 Ordered By: Cherrie Palacio Discharge Data Discharge Date/Time-TO BE ENTERED AT DEPARTURE: 06/08/22 19:00 OB:DS Summary Summary Vaginal Delivery Method: Spontaneaous Episiotomy Description: None Laceration Description: Periurethral Laceration Extension: First Degree Contraception Discussed Contraception Discussed: No, [place] Gender-Baby A: Female weight: 6 lb 12.115 oz Status at Discharge Functional status at discharge: independent ambulation Overall status at discharge: patient is back to baseline Mental Status: mental status grossly normal Speech and Movement: speech and movement normal Mood: congruent mood Affect: normal affect Exam Physical Exam Vital signs: Temp Pulse Resp BP Pulse Ox 97.9 F 85 20 119/83 99 06/08/22 09:00 06/08/22 09:00 06/08/22 09:00 06/08/22 09:00 06/08/22 04:01 PFSH All Active Problems (Updated 06/08/22 @ 12:24 by Cherrie Palacio CNM) Term of female (Acute) Spontaneous onset of labor (Acute) Group B Streptococcus carrier, +RV culture, currently (Acute) Encounter for ultrasound recheck of pyelectasis, antepartum (Acute) Change in skin mole (Acute) Rh negative state in antepartum period (Acute) Anxiety (Chronic) no medications. Marijuana abuse (Acute) (Acute) Medical History Asthma Migraine Personal history of endometriosis Dx'ed with HSG procedure Surgical History History of mandibular surgery History of removal of ovarian cyst Family History Mother Bipolar 1 disorder, mixed, moderate Depression Breast cancer Alcohol use disorder Father Cancer lymphoma Alcohol use disorder Sister Hypertension gestational hypertension Social History Smoking/Tobacco Use Status: Never Smoking risk assessment performed?: Yes Alcohol Intake: never Drug use: Daily Substance use type: marijuana Counseling given: Yes Counseling provided: provider counseling Adopted: No Foster care: No (mostly raised by her father) Pets and animals: Yes Pets and animals: dog(s) Sexually active: Yes Do you think of yourself as: straight/heterosexual Current gender identity: female Do you feel safe at home: Yes Do you feel safe in your relationship?: Yes History History 1 Para 0 Hx # Term Pregnancies 0 Multiple births 0 Hx # Pregnancies 0 Ectopic pregnancies 0 AB induced 0 Hx Number of Living Children 0 AB spontaneous 0 DS: Data Vitals/I&O Vitals and I&O: Vital Signs Temperature 97.9 F 06/08/22 09:00 Pulse 85 06/08/22 09:00 Pulse Rhythm Regular 06/07/22 19:40 Respiratory Rate 20 06/08/22 09:00 Blood Pressure 119/83 06/08/22 09:00 Blood Pressure Mean 95 06/08/22 09:00 Pulse Oximetry 99 06/08/22 04:01 Oxygen Delivery Method Room Air 06/07/22 02:04 Oxygen Flow Rate 0 06/07/22 02:04 Pain Level 3 06/07/22 17:41 Intake & Output 06/08/22 06/08/22 06/09/22 11:59 23:59 11:59 Output Total 500 / 500 Balance -500 / -500 Output: Urine 500 / 500
== END 2022-06-08 19:00 | disposition home or self-care (01) | DRG 806 ==
LOC: BCD 01:56 → OBS 02:41
PROVIDERS: Advanced Practice Midwife; Admitting Provider Obstetrics & Gynecology; Visit Provider Obstetrics & Gynecology
DX: O99.824 Streptococcus B carrier state complicating childbirth (principal); O36.0930 Maternal care for other rhesus isoimmunization, third trimester, not applicable or unspecified; Z37.0 Single live birth; Z3A.39 39 weeks gestation of pregnancy; O99.344 Other mental disorders complicating childbirth; F41.9 Anxiety disorder, unspecified; O99.02 Anemia complicating childbirth; D64.9 Anemia, unspecified; O70.0 First degree perineal laceration during delivery; O99.324 Drug use complicating childbirth; F12.10 Cannabis abuse, uncomplicated; O71.82 Other specified trauma to perineum and vulva
CPT/HCPCS: 85027; 86850; 86900; 86901; 87635; 86870; J2540; J3010; J3490

== ENCOUNTER 2025-09-12 09:25 | Emergency (ER) | payer MEDICAID, SELFPAY ==
[2025-09-12 09:31] VITALS: BP 146/104; PULSE 73; RESP 12; TEMP 36.8; O2SAT 99
--- NOTE | 2025-09-12 09:31 | ED.GENADUL_ITS ---
Discharge Plan Disposition Patient Disposition: Home Discharge Details Clinical Impression: Open wound of right hand due to dog bite, Immunization, tetanus-diphtheria Primary Care Provider: Unknown,Unknown ED Provider: Shant Aguilar Home Meds and New Rx's Prescriptions: New amoxicillin-pot clavulanate 875-125 mg tablet 1 tab PO BID 7 Days Qty: 14 0RF Continued Gummies 400 mcg-35 mg- 25 mg-5 mg tablet,chewable 1 tab PO DAILY medroxyprogesterone [Depo-Provera] 150 mg/mL syringe 150 mg IM Q12W Qty: 1 4RF Discharge Instructions Additional Instructions: You were seen in the emergency department for your dog bite. As we discussed if you develop streaking signs of infection and any foul-smelling drainage or any fevers please return to the emergency department. Please take these antibiotics as directed. Please try to keep your hand clean and dry. For your pain please take medications as follows: 1. Take acetaminophen (Tylenol), 1,000 mg (two 500 mg tabs) every 6 hours [2. Take ibuprofen (Advil), 400 mg every 6 hours.] Stand Alone Forms: Portal Information Discharge Data Discharge Date/Time-TO BE ENTERED AT DEPARTURE: 09/12/25 10:31 HPI General Date/Time Provider Initiated Documentation: 09/12/25 09:31 . HPI Narrative: MDM This is overall quite well-appearing normothermic and not tachycardic 30-year-old female with right dominant dorsal hand superficial laceration which was irrigated extensively in the emergency department and closed loosely with Steri-Strips. Please see separate procedure note. Patient will be on amoxicillin clavulanic acid. Her tetanus is updated. She had no pain on proportion to suggest necrotizing soft tissue infection. We discussed that she should return to the ED if she develops streaking signs of infection fevers or any foul-smelling drainage. She understood her return indications of discharge with empiric trial of expectant outpatient management. 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 HPI The patient presents for evaluation of a dog bite. She sustained the injury this morning while intervening in a skirmish between her dogs. The wound was not actively bleeding at the time of the incident. She is right-handed and reports no pain or discomfort in her hand, with full mobility retained. Her last tetanus vaccination was administered approximately 3 years ago during her . Exam General: Well-appearing in no acute distress speaking in complete sentences. Head: Normocephalic, atraumatic. Eye: Extraocular eye movements intact. No conjunctival injection. No scleral icterus. Ear, nose, mouth, throat: Grossly normal inspection. Normal voice, handling secretions normally. Neck: Trachea midline. Cardiovascular: Well-perfused distal extremities. Respiratory: Nonlabored respiration. Gastrointestinal: Nondistended abdomen. Musculoskeletal: On the dorsal surface of the patient's right hand there is an approximately 3 cm hemostatic laceration that does not violates the subcutaneous tissue. Patient has full intact range of motion and sensation in her right hand across the radial, median, and ulnar nerve distributions. 2+ radial pulse. Cap refill less than 2 seconds right fingertips. Skin: Normal for age and race, grossly normal temperature and turgor. No acute rash. Neurologic: Alert and appropriate, no apparent acute deficits. Psychiatric: Mood and manner are appropriate. Grooming and personal hygiene are appropriate. Related Data Home Medications ?Medication ?Instructions ?Recorded ?Confirmed PNV 153-FA 400 mcg-om3 35 mg-dha 1 tab PO DAILY 06/27/22 25 mg-epa 5 mg-fish oil chew tablet ( Gummies) medroxyprogesterone 150 mg/mL 150 mg IM Q12W #1 mL 09/0606/27/22 intramuscular syringe (Depo-Provera) amoxicillin 875 mg-potassium 1 tab PO BID 7 days #14 t abs 09/12/25 clavulanate 125 mg tablet Previous Rx's ?Medication ?Instructions ?Recorded medroxyprogesterone 150 mg/mL 150 mg IM Q12W #1 mL 09/06 intramuscular syringe (Depo-Provera) amoxicillin 875 mg-potassium 1 tab PO BID 7 days #14 t abs 09/12/25 clavulanate 125 mg tablet Allergies Allergy/AdvReac Type Severity Reaction Status Date / Time tramadol Allergy Verified 07/26/22 13:30 morphine AdvReac Itching Verified 07/26/22 13:30 General NAI: 3 Procedure Laceration Laceration 1: Date of Procedure: 09/12/25 Time of procedure: 10:20 Provider that performed the procedure: Shant Wagner Time Out Performed: No Patient Consented: Verbally Site: hand Side (If applicable): right Size (cm): 3 Description: linear Depth: simple, single layer Pre-repair:: wound explored and irrigated extensively Skin layer closed with: other (Steri-Strips) Complications: None PFSH All Active Problems (Updated 09/12/25 @ 10:17 by Shant Aguilar MD) Immunization, tetanus-diphtheria (Acute) Open wound of right hand due to dog bite (Acute) 6 weeks follow-up (Acute) Encounter for counseling regarding initiation of other contraceptive measure (Acute) Depo-Provera contraceptive status (Acute) Encounter for counseling regarding contraception (Acute) Term of female (Acute) Encounter for ultrasound recheck of pyelectasis, antepartum (Acute) Change in skin mole (Acute) Rh negative state in antepartum period (Acute) Anxiety (Chronic) no medications. Marijuana abuse (Acute) (Acute) Medical History Asthma Migraine Personal history of endometriosis Dx'ed with HSG procedure Surgical History History of mandibular surgery History of removal of ovarian cyst Family History Mother Bipolar 1 disorder, mixed, moderate Depression Breast cancer Alcohol use disorder Father Cancer lymphoma Alcohol use disorder Sister Hypertension gestational hypertension Social History Smoking/Tobacco Use Status: Never Smoking risk assessment performed?: Yes Alcohol Intake: never Drug use: Daily Substance use type: marijuana Counseling given: Yes Counseling provided: provider counseling Adopted: No Foster care: No (mostly raised by her father) Housing: house Pets and animals: Yes Pets and animals: dog(s) Sexually active: Yes Do you think of yourself as: straight/heterosexual Current gender identity: female Do you feel safe at home: Yes Do you feel safe in your relationship?: Yes History History 1 Para 1 Hx # Term Pregnancies 1 Multiple births 0 Hx # Pregnancies 0 Ectopic pregnancies 0 AB induced 0 Hx Number of Living Children 1 AB spontaneous 0 Past Pregnancies Del. Date GA/Weeks # Preg Succ Route Wgt Sex Labor Lgth Anesth esia Location [facility] 06/07/22 39 No Yes vaginal 3064.583 g Female 22hrs 36min MICHAEL Mendes Delivery Date: 06/07/22 Last Updated by: HARVEY Gray
[2025-09-12] MEDS: Diph,Pertuss(Acell),Tet Vac/Pf 0.5 ML SYR IM (10:09)
[2025-09-12] MEDS: Amoxicillin 875/Clav. 125 TAB PO (10:09)
[2025-09-12] MEDS: Ibuprofen 600 MG TAB PO (10:10)
[2025-09-12] MEDS: Acetaminophen 325 MG TAB 650 MG PO (10:10)
== END 2025-09-12 10:31 | disposition home or self-care (01) ==
LOC: ER 10:53
PROVIDERS: Emergency Provider Emergency Medicine
DX: S61.411A Laceration without foreign body of right hand, initial encounter (principal); Z23 Encounter for immunization; Y93.K9 Activity, other involving animal care; Y92.018 Other place in single-family (private) house as the place of occurrence of the external cause; W54.0XXA Bitten by dog, initial encounter
CPT/HCPCS: 90471; 90715; 99283